=== PATIENT | male | born 2000 | race Hispanic/Latino ===

== ENCOUNTER 2019-03-16 02:28 | Emergency (ER) | payer OTHER, SELFPAY ==
[2019-03-16] MEDS ORDERED: Haloperidol Lactate 5 MG/ML VIAL ONE (02:42)
[2019-03-16] MEDS ORDERED: Lorazepam 2 MG/ML VIAL ONE (02:42)
[2019-03-16] MEDS ORDERED: diphenhydrAMINE 50 MG/ML VIAL ONE (02:42)
[2019-03-16 05:05] LABS: #Lymphocytes 1.2 thou/uL (1.20-3.40); #Monocytes 0.4 thou/uL (0.11-0.59); #Neutrophils 10.8 thou/uL (1.40-6.50); %Basophils 0.1 % (0.0-1.0); %Eosinophils 0.1 % (0.0-10.0); %Lymphocytes 9.5 % (28.0-48.0); %Monocytes 3.1 % (0.0-4.0); %Neutrophils 87.2 % (31.0-61.0); Mean Corpuscular Hemoglobin 32.3 pg (25.0-35.0); Mean Corpuscular Volume 94.9 fL (78.0-98.0); Platelet Count 219 thou/uL (130-400); RBC Distribution Width 11.2 % (11.5-14.5); Red Blood Cell (RBC) Count 4.33 mill/uL (4.00-5.20); White Blood Cell (WBC) Count 12.3 thou/uL (4.8-10.8)
[2019-03-16 05:29] LABS: ALT (SGPT) 21 U/L (8-55); AST (SGOT) 30 U/L (10-45); Albumin 3.9 g/dL (3.5-5.0); Alkaline Phosphatase 97 U/L (Less than 750); Anion Gap 15 mmol/L (10-20); BUN (Urea Nitrogen) 14 mg/dL (8.4-21.0); Bilirubin, Total 0.6 mg/dL (0.2-1.2); Calc. Creatinine Clearance 0 mL/min (70-130); Calcium 8.3 mg/dL (7.8-10.44); Carbon Dioxide 18 mmol/L (22-29); Chloride 110 mmol/L (98-107); Estimated GFR-MDRD Greater than 90; Globulin 2.7 g/dL (2.4-3.5); Glucose 86 mg/dL (70-105); Potassium 3.9 mmol/L (3.5-5.1); Protein, Total 6.6 g/dL (6.0-8.3); Sodium 139 mmol/L (136-145)
--- NOTE | 2019-03-16 08:28 | RAD ---
LEFT SHOULDER 3 VIEWS: INDICATION: Pain. FINDINGS: There is no fracture or dislocation. No significant arthropathy. IMPRESSION: No acute process of the left shoulder. POS: [facility]
== END 2019-03-16 11:45 | disposition home or self-care (01) ==
LOC: ERS 02:28
DX: F10.129 Alcohol abuse with intoxication, unspecified (principal)
CPT/HCPCS: 36415; 80053; 85025; 96360; 96361; 96372; J1200; J1630; J2060